=== PATIENT | female | born 1945 | race Caucasian/White ===

== ENCOUNTER → 2019-07-11 | Outpatient (CLI) | payer BC, OTHER ==
[~2019-07-11] MED LIST: ASPIR 8181 MG PO; CARDIZEM30 MG PO; LEVOTHYROXIN0.025 MG PO; LIPITOR20 MG PO; LISINOPRIL10 MG PO; MEDROL DOSPAK21 TA1 PO; TRAMADOL 50 MG50 MG PO
--- NOTE | 2019-07-15 07:19 | PF ---
[address] [address] PULMONARY FUNCTION REPORT Name: KATHERINARLEY Lynette Room: [facility]#: [id number] Admission: 07/11/19 Attend Phys: Anand Zavala DO Discharge: Date of : 49 Report #: [id number] THIS REPORT FOR: //name// CC: Anand Zavala DATE OF SERVICE: 07/11/2019 REQUESTING PHYSICIAN: Anand Zavala DO. Spirometry reveals a mild decrease in the FEV1 to 1.66 which was 68% of predicted. FVC 2.55. FEV1/FVC ratio is 65%. Mid flows were severely decreased. There was a 55% improvement noted in the mid flows after inhaled bronchodilator. Lung volumes by plethysmography reveal a normal TLC and residual volume. Diffusion capacity was normal. IMPRESSION: These studies are consistent with a mild obstructive process. There is improvement seen at the level of small airways after inhaled bronchodilator. <ELECTRONICALLY SIGNED> By: Hina Dolan MD 07/15/19 0719 [id number] Dolan MD /nt
== END ==
LOC: M.PUL 10:00
DX: R06.09 Other forms of dyspnea (principal)